=== PATIENT | male | born 1950 | race Two or more races ===

== ENCOUNTER 2024-11-04 10:49 | Emergency (ER) | payer MEDICARE, BC ==
[~2024-11-04] VITALS: Ht 177.8 cm; Wt 70.6 kg
--- NOTE | 2024-11-04 11:01 | ED.PDOC ---
Vanessa. trauma (HPI) HPI Comments 73 year old male presents to the ED with chief complaint of chest wall injury. Patient reports that when on a hike yesterday, he had accidentally tripped and hit his chest against a tree branch, causing pain and losing his breath for a moment. Patient relays that he is still experiencing pain to his chest till today and has a small abrasion noted on his chest. Patient denies any head injury, SOB, LOC, dizziness, headache, cough, congestion, or further injury. Chief Complaint: Chest Wall Injury Time Seen by MD: 11:00 Reviewed notes: Nurses Notes, Medications, Allergies Allergies: Coded Allergies: NO KNOWN ALLERGIES (Unverified , 11/04/24) Information Source: Patient Mode of Arrival: Ambulatory Severity: Moderate Timing: Days Duration: Since onset Prehospital treatment: None Location: Chest Mechanism: Direct blow Past Medical History PAST MEDICAL HISTORY: Denies Surgical History: Denies all surgeries Family History Family History: Reviewed,noncontributory to illness Social History Smoker: Non-Smoker Alcohol: Denies ETOH Use Drugs: Denies Drug Use Lives In: Home Constitutional: denies: chills, diaphoresis, fatigue, fever, malaise, sweats, weakness, others EENTM: denies: blurred vision, double vision, ear bleeding, ear discharge, ear drainage, ear pain, ear ringing, eye pain, eye redness, hearing loss, mouth pain, mouth swelling, nasal discharge, nose bleeding, nose congestion, nose pain, photophobia, tearing, throat pain, throat swelling, voice changes, others Respiratory: denies: cough, hemoptysis, orthopnea, SOB at rest, shortness of breath, SOB with excertion, stridor, wheezing, others Cardiovascular: reports: chest pain; denies: dizzy spells, diaphoresis, Dyspnea on exertion, edema, irregular heart beat, left arm pain, lightheadedness, palpitations, PND, syncope, others Gastrointestinal: denies: abdomen distended, abdominal pain, blood streaked bowels, constipated, diarrhea, dysphagia, difficulty swallowing, hematemesis, melena, nausea, poor appetite, poor fluid intake, rectal bleeding, rectal pain, vomiting, others Genitourinary: denies: burning, dysuria, flank pain, frequency, hematuria, incontinence, penile discharge, penile sore, pain, testicle pain, testicle swelling, urgency, others Neurological: denies: dizziness, fainting, headache, left sided numbness, left sided weakness, numbness, paresthesia, pre-existing deficit, right sided numbness, right sided weakness, seizure, speech problems, tingling, tremors, weakness, others Musculoskeletal: denies: back pain, gout, joint pain, joint swelling, muscle pain, muscle stiffness, neck pain, others Integumetry: denies: bruises, change in color, change in hair/nails, dryness, laceration, lesions, lumps, rash, wounds, others Allergic/Immunocompromised: denies: Difficulty Healing, Frequent Infections, Hives, Itching, others Hematologic/Lymphatic: denies: anemia, blood clots, easy bleeding, easy bruising, swollen glands, others Endocrine: denies: excessive hunger, excessive sweating, excessive thirst, excessive urination, flushing, intolerance to cold, intolerance to heat, unexplained weight gain, unexplained weight loss, others Psychiatric: denies: anxiety, bipolar disorder, depression, hopeless, panic disorder, schizophrenia, sleepless, suicidal, others All Other Systems: Reviewed and Negative Physical Exam General Appearance: Mild Distress, Normal HEENT: Normal ENT Inspection, PERRL/EOMI, Pharynx Normal, TMs Normal Neck: Full Range of Motion, Non-Tender, Normal, Normal Inspection Respiratory: Lungs Clear, No Accessory Muscle Use, No Respiratory Distress, Normal Breath Sounds, Other (Sternal contusion mid sternum no discoloration or hematoma) Cardiovascular: No Edema, No JVD, No Murmur, No Gallop, Normal Peripheral Pulses, Regular Rate/Rhythm Breast Exam: Deferred Gastrointestinal: No Organomegaly, Non Tender, No Pulsatile Mass, Normal Bowel Sounds, Soft Genitalia: Deferred Pelvic: Deferred Rectal: Deferred Extremities: No calf tenderness, Normal capillary refill, Normal inspection, Normal range of motion, Non-tender, No pedal edema Musculoskeletal : Extremity Location: Back Apperance: Swelling, Limited ROM, Tenderness: Mild, Other (From the back pack) Neurologic: Alert, manager emergency II-XII nml as Tested, No Motor Deficits, Normal Affect, Normal Mood, No Sensory Deficits Cerebellar Function: Normal Reflexes: Normal Skin: Dry, Normal Color, Warm Peripheral Pulses: 1+ carotid (R), 1+ carotid (L) Lymphatic: No Adenopathy Was a procedure done? Was a procedure done?: No EKG EKG : Pulse Rate (adult): 73 [place]: Normal Cardiac Rhythm: NSR Block: None Hypertrophy: None ST: Normal Differential Diagnosis Multiple Trauma: Fractures, Contusion Neck Injury: N/A X-Ray, Labs, Meds, VS Vital Signs Date Time Temp Pulse Resp B/P (MAP) Pulse Ox O2 Delivery O2 Flow Rate FiO2 11/04/24 14:57 98.0 72 18 122/64 (83) 98 98.0 11/04/24 13:00 64 20 100 0 11/04/24 12:58 98.3 64 20 127/84 (98) 100 98.3 11/04/24 11:31 73 11/04/24 11:03 98.0 74 17 119/70 (86) 98 98.0 11/04/24 10:58 73 Lab Test 11/04/24 14:10 11/04/24 12:34 11/04/24 11:09 Range/Units Troponin I High Sensitivity 22 22 24 </=54 ng/L Chest XR: FINDINGS: Lines and tubes: None Cardiomediastinal silhouette: normal Pulmonary vasculature: normal Lung expansion: normal Lung airspace: normal Lung interstitium: normal Pleura: normal Pneumothorax: no Bones: S shaped scoliosis of the thoracic spine. Other: no IMPRESSION: No acute intrathoracic abnormality. X-Ray, Labs, Meds, VS Comment COURSE IN THE EMERGENCY DEPARTMENT EVENTFUL PATIENT WAS HIKING AND FELL AND HIT AN OBJECT AGAINST HIS STERNUM LITTLE PATIENT BUT NO OTHER SYMPTOMATOLOGY CHEST X-RAY IS NORMAL EXCEPT FOR A SCOLIOSIS TO THE T-SPINE EKG SHOWS NORMAL SINUS RHYTHM AT CERTAIN TROPONIN 22 PATIENT WILL BE DISCHARGED HOME TO FOLLOW UP WITH HIS PCP Images Reviewed?: Images reviewed and evaluated by me Time of 1ST Reevaluation: 12:00 Reevaluation 1ST: Unchanged Consultation: PCP Patient Education/Counseling: Diagnosis, Treatment, Prognosis, Need For Follow Up Family Education/Counseling: Diagnosis, Treatment, Prognosis, Need For Follow Up, No Family Present Departure 1 Departure Time of Disposition: 15:06 Impression: Primary Impression: Activity, walking, marching and hiking Additional Impressions: Fall (on)(from) incline, initial encounter Sternal contusion Qualified Codes: S20.219A - Contusion of unspecified front wall of thorax, initial encounter Disposition: HOME / SELF CARE / HOMELESS Condition: Fair Additional Instructions: LOCAL HEAT AND FOLLOW UP WITH YOUR PCP e-Prescriptions Diclofenac Potassium (Diclofenac Potassium) 50 Mg Tab 1 TAB PO TIDP for 10 Days, #30 TAB Prov: STEVEN TAI MD 11/04/24 Discharged With: Self Critical Care Note Critical Care Time?: No Stability Stability form required: No Heart Score Heart Score: Heart Score Response (Comments) Value History N/A 0 EKG Normal 0 Age >65 2 Risk Factors No known risk factors 0 Troponin N/A 0 Total 2 I personally scribed for STEVEN TAI MD ([email or web address]) on 11/04/24 at 11:01. Elec tronically submitted by Vince Carlson ([email or web address]). I personally scribed for STEVEN TAI MD ([email or web address]) on 11/04/24 at 11:30. [place] ctronically submitted by Vince Carlson ([email or web address]). I personally scribed for STEVEN TAI MD ([email or web address]) on 11/04/24 at 11:31. El ectronically submitted by Vince Carlson ([email or web address]). I personally scribed for STEVEN TAI MD ([email or web address]) on 11/04/24 at 12:11. E lectronically submitted by Vince Carlson ([email or web address]). STEVEN TAI MD November 04, 2024 11:01
--- NOTE | 2024-11-04 11:54 | DVH ---
XY CHEST TWO VIEWS ROUTINE, HISTORY: cest contusion COMPARISON: None None TECHNICAL DATA: 2 view of the chest was obtained. FINDINGS: Lines and tubes: None Cardiomediastinal silhouette: normal Pulmonary vasculature: normal Lung expansion: normal Lung airspace: normal Lung interstitium: normal Pleura: normal Pneumothorax: no Bones: S shaped scoliosis of the thoracic spine. Other: no IMPRESSION: No acute intrathoracic abnormality.
[2024-11-04] MEDS ORDERED: DICL50TA2 PO (15:08)
[2024-11-04 15:24] VITALS: BP 118/76; PULSE 74; RESP 20; TEMP 98.2; O2SAT 99
--- NOTE | 2024-11-06 10:35 | ECG ---
[facility] Test Date: 2024-11-04 Test Time: 10:58:32 Pat Name: SHANIA GAMEZ Department: ER Room: Gender: M Sports Manager: TODD : 1950 Requested By: STEVEN TAI Order Number: [id number] Reading MD: Measurements Intervals [place] Rate: 73 P: 62 TX: 149 QRS: 54 QRSD: 97 T: 48 QT: 412 QTc: 454 Interpretive Statements Sinus rhythm RSR' in V1 or V2, right VCD or RVH Please click the below link to view image of tracing.
== END 2024-11-04 15:25 | disposition home or self-care (01) ==
LOC: ER 10:49
DX: S20.219A Contusion of unspecified front wall of thorax, initial encounter (principal); W22.8XXA Striking against or struck by other objects, initial encounter; Y93.01 Activity, walking, marching and hiking; Y92.89 Other specified places as the place of occurrence of the external cause; Y99.8 Other external cause status
CPT/HCPCS: 36415; 71046; 84484; 93005